=== PATIENT | female | born 1995 | race Caucasian/White ===

== ENCOUNTER 2016-10-30 11:12 | Emergency (ER) | payer BC, OTHER ==
[~2016-10-30] VITALS: Ht 167.6 cm; Wt 156.0 kg
[~2016-10-30 11:12] MED LIST: ACET-1256 PO; DICL-201 PO
[2016-10-30 11:15] VITALS: BP 133/85; PULSE 100; TEMP 36.5; O2SAT 97; Ht 167.6 cm; Wt 156.0 kg
--- NOTE | 2016-10-30 11:36 | EMERGENCY ROOM VISIT NOTE ---
ED Visit Note First contact with patient: 11:16 CHIEF COMPLAINT: Stuck tampon HISTORY OF PRESENT ILLNESS: Patient is a 20-year-old white female who presents the emergency department for evaluation of a tampon that has been stuck since around 10:00 last night. She started her normal menstrual period yesterday. She had a tampon in place and had intercourse without removing the tampon. She tried but is unable to remove it. She notes some pelvic discomfort, denies any itching or vaginal discharge. She denies abdominal pain, nausea, or vomiting. REVIEW OF SYSTEMS: Review of systems as per HPI. All other systems reviewed were negative. At least 6 systems reviewed. PMH: Electronic medical records are reviewed and summarized as above/below. See Problem List. SOCIAL HISTORY: Patient lives at home with roommates. Smoker. Employed. PHYSICAL EXAM: Vital Signs: Reviewed Nurse's notes. CONSTITUTIONAL: Patient is a morbidly obese 21-year-old white female who is awake and alert and in no acute distress. SKIN: Normal. PELVIC EXAM: VAGINA: Retained tampon in the vaginal vault. Bloody discharge. CERVIX: Closed, pink, nontender. VULVA: No ulcers, vesicles, or atrophy. EMERGENCY DEPARTMENT COURSE: Speculum was placed and intact tampon was removed with ring forceps. Patient tolerated the procedure well. She denies any additional needs in the emergency department and was discharged to home. Problem List Medical Problems: (1) Abdominal pain Status: Resolved (2) Abdominal pain Status: Resolved (3) Abdominal pain, lower Status: Resolved (4) Acute bronchitis Status: Resolved (5) Asthma Status: Chronic (6) Constipation Status: Resolved (7) Cyst of fallopian tube Status: Resolved (8) Cyst of ovary Status: Resolved (9) Erythema migrans (Lyme disease) Status: Resolved (10) Headache Status: Resolved (11) Headache Status: Resolved (12) Migraines Status: Chronic (13) Pain in pelvis Status: Resolved (14) paratubal cyst Status: Resolved (15) PCOS (polycystic ovarian syndrome) Status: Chronic (16) UTI (urinary tract infection) Status: Resolved Surgical Problems: (1) History of unilateral fallopian tube excision Status: Resolved Current/Historical Medications Scheduled Diclofenac (Voltaren), 75 MG PO BID Scheduled PRN Acetaminophen (Tylenol), 500 MG PO BID PRN for Pain or Fever Allergies Coded Allergies: Sumatriptan (Unverified Allergy, Mild, HIVES, 01/16/16) Amitriptyline (Verified Allergy, Unknown, "NUMB FINGERS", 01/16/16) Vital Signs Date Time Temp Pulse Resp B/P Pulse Ox O2 Delivery O2 Flow Rate FiO2 10/30/16 11:15 36.5 100 18 133/85 97 Room Air Departure Information Impression Primary Impression: Retained tampon Referrals No Doctor, Assigned (PCP) Patient Instructions [facility] Additional Instructions Return to the ED as needed. Problem Qualifiers Primary Impression: Retained tampon Encounter type: initial encounter Qualified Codes: T19.2XXA - Foreign body in vulva and vagina, initial encounter
== END 2016-10-30 11:40 | disposition home or self-care (01) ==
LOC: C.EDB 11:13 → C.EDD 11:40
DX: T19.2XXA Foreign body in vulva and vagina, initial encounter (principal); J45.909 Unspecified asthma, uncomplicated; E66.01 Morbid (severe) obesity due to excess calories; F17.200 Nicotine dependence, unspecified, uncomplicated; Z79.1 Long term (current) use of non-steroidal anti-inflammatories (NSAID); Z68.43 Body mass index [BMI] 50.0-59.9, adult; X58.XXXA Exposure to other specified factors, initial encounter; Y99.8 Other external cause status